=== PATIENT | male | born 1940 | race Caucasian/White ===

== ENCOUNTER → 2018-05-07 10:39 | Outpatient (CLI) | payer OTHER, SELFPAY ==
--- NOTE | 2018-05-07 | DI.RAD.S_ITS ---
PROCEDURE: XR KNEE STANDING BI INDICATIONS: CHRONIC PAIN OF BOTH KNEES TECHNIQUE: Single frontal weight bearing views of the knees bilaterally were obtained. COMPARISON: None. FINDINGS: Bones: No acute fractures or dislocations. P note is made of [id number] articulation at the medial compartment of each knee with varus angulation at the knee joint as a result atellar alignment is normal on the sunrise view. No suspicious bony lesions. Joint spaces appear normal with weightbearing. Soft tissues: No knee joint effusions. No suspicious soft tissue calcification. IMPRESSION: Moderately severe medial compartment knee joint osteoarthritis to the degree that there is iezc-lb-[id number] articulation at the medial compartment bilaterally symmetric. Dictated by: Juan Rodgers M.D. on 05/07/2018 at 11:30 Approved by: Juan Rodgers M.D. on 05/07/2018 at 11:31
--- NOTE | 2018-05-07 | DI.RAD.S_ITS ---
PROCEDURE: XR KNEE LT 1TO2V INDICATIONS: CHRONIC PAINOF BOTH KNEES TECHNIQUE: 2 views of the knee were acquired. COMPARISON: None. FINDINGS: Bones: No fractures or dislocations. No suspicious bony lesions. Soft tissues: No joint effusion. No suspicious soft tissue calcifications. IMPRESSION: Moderate knee joint osteoarthritis, no trauma, no effusion or loose body seen. Dictated by: Juan Rodgers M.D. on 05/07/2018 at 11:28 Approved by: Juan Rodgers M.D. on 05/07/2018 at 11:29
--- NOTE | 2018-05-07 | DI.RAD.S_ITS ---
PROCEDURE: XR SHOULDER RT MIN 2V INDICATIONS: CHRONIC SHOULDER PAIN TECHNIQUE: 3 views of the shoulder were acquired. COMPARISON: None. FINDINGS: Bones: No fractures or dislocations but there is moderately severe degenerative osteoarthritis at the acromioclavicular joint and also the glenohumeral articulation.. No suspicious bony lesions. Visualized ribs appear intact. Calcific bursitis or tendinitis lateral border of the humeral head. Soft tissues: No suspicious soft tissue calcifications. IMPRESSION: No trauma. Moderately severe shoulder joint degenerative osteoarthritis as discussed. There likely is either calcific tendinitis or bursitis at the lateral border of the humeral articular surface margin, based on the straight AP view in addition to the osteoarthritis present more medially. Dictated by: Juan Rodgers M.D. on 05/07/2018 at 11:31 Approved by: Juan Rodgers M.D. on 05/07/2018 at 11:33
--- NOTE | 2018-05-07 | DI.RAD.S_ITS ---
PROCEDURE: XR KNEE RT 1TO2V INDICATIONS: CHRONIC PAIN OF BOTH KNEES TECHNIQUE: 2 views of the knee were acquired. COMPARISON: None. FINDINGS: Bones: No fractures or dislocations. No suspicious bony lesions. Soft tissues: No joint effusion. No suspicious soft tissue calcifications. IMPRESSION: Moderate knee joint osteoarthritis, without trauma. No effusion or loose body seen. Dictated by: Juan Rodgers M.D. on 05/07/2018 at 11:29 Approved by: Juan Rodgers M.D. on 05/07/2018 at 11:30
== END ==
PROVIDERS: Visit Provider Family Medicine
DX: M25.561 Pain in right knee (principal); M25.562 Pain in left knee; M25.511 Pain in right shoulder; M17.0 Bilateral primary osteoarthritis of knee; M19.011 Primary osteoarthritis, right shoulder; G89.29 Other chronic pain
CPT/HCPCS: 73030; 73560; 73565

== ENCOUNTER → 2020-02-22 14:53 | Outpatient (CLI) | payer MEDICARE, SELFPAY ==
--- NOTE | 2020-02-22 | DI.RAD.S_ITS ---
PROCEDURE: XR KNEE LT 3V INDICATIONS: CHRONIC PAIN OF LEFT KNEE TECHNIQUE: 3 views of the knee were acquired. COMPARISON: [facility], CR, XR KNEE STANDING BI, 05/07/2018, 10:59. FINDINGS: Bones: No fractures or dislocations. No suspicious bony lesions. Degenerative medial compartment joint space narrowing is near-severe with yklo-quan-hl-bone articulation. This has not significantly worsened but there is a slight degree of worsening of lateral compartment joint space narrowing with reference to the prior study from April 2018. Patellofemoral joint osteoarthritis at the lateral facet of the patellofemoral joint is moderate in severity. No effusion or loose body. Soft tissues: No joint effusion. No suspicious soft tissue calcifications. IMPRESSION: Slightly worsened degenerative knee joint osteoarthritis that is near severe at the medial compartment, and moderate in severity at the patellofemoral joint and lateral compartment. Dictated by: Juan Rodgers M.D. on 02/22/2020 at 15:49 Approved by: Juan Rodgers M.D. on 02/22/2020 at 15:51
--- NOTE | 2020-02-22 | DI.RAD.S_ITS ---
PROCEDURE: XR HIP W PEL IF DONE BILAT 2V INDICATIONS: BILATERAL HIP PAIN TECHNIQUE: AP pelvis with lateral view(s) of the bilateral hip(s). COMPARISON: None. FINDINGS: Bones: No fractures or dislocations. Pelvic ring appears intact. No suspicious bony lesions. The degenerative hip joint osteoarthritis is severe on the right and near severe on the left, with [id number] articulation on the right and only slightly less severity on the left. No effusion or loose body is found, no trauma is identified. Soft tissues: The visualized bowel gas pattern is normal. No suspicious soft tissue calcifications. IMPRESSION: Quite severe bilateral hip joint osteoarthritis, greater on the right than the left. Dictated by: Juan Rodgers M.D. on 02/22/2020 at 15:51 Approved by: Juan Rodgers M.D. on 02/22/2020 at 15:52
== END ==
PROVIDERS: PCP Family Medicine; Referring Provider Orthopaedic Surgery; Visit Provider Orthopaedic Surgery
DX: M25.551 Pain in right hip (principal); M25.552 Pain in left hip; M16.0 Bilateral primary osteoarthritis of hip; M25.562 Pain in left knee; M17.12 Unilateral primary osteoarthritis, left knee; G89.29 Other chronic pain
CPT/HCPCS: 73521; 73562